=== PATIENT | male | born 1945 | race Two or more races ===

== ENCOUNTER → 2021-07-25 | Emergency (ER) | payer OTHER ==
[~2021-07-25] VITALS: Ht 157.5 cm; Wt 68.0 kg
[~2021-07-25] MED LIST: COZAAR50 MG; FENOFIBRATE160 MG; HYDRODIURIL12.5 MG; SIMVASTATIN5 MG PO; TOPROL XL100 M1
== END | disposition left against medical advice (07) ==
LOC: ER 13:32
DX: Z53.20 Procedure and treatment not carried out because of patient's decision for unspecified reasons (principal)